=== PATIENT | female | born 1995 | race Two or more races ===

== ENCOUNTER 2025-02-18 15:06 | Emergency (ER) | payer OTHER ==
[~2025-02-18] VITALS: Ht 160 cm; Wt 83.6 kg
[2025-02-18 16:20] VITALS: TEMP 98.3
[2025-02-18] MEDS ORDERED: METF-1211 PO (16:22)
[2025-02-18] MEDS ORDERED: ALBU18HF12 IH (16:22)
[2025-02-18 16:27] VITALS: BP 133/87; PULSE 82; RESP 16; O2SAT 99
[2025-02-18] MEDS: DOXYCYCLINE HYCLATE 100 MG TABLET PO ONE (17:38)
[2025-02-18] MEDS: CEPHALEXIN MONOHYDRATE 500 MG CAPSULE PO ONE (17:38)
[2025-02-18] MEDS: CIPROFLOXACIN HCL 0.2%/HYDROCORT 1% 10 ML OTIC SUSPENSION AD SCH (17:40)
[2025-02-18 19:11] LABS: GLUCOMETER DEV NAME(LOC) ERT.7; GLUCOSE,POINT OF CARE 98 MG/DL (70-110)
== END 2025-02-18 19:28 ==
LOC: EMS 15:06
DX: H60.91 Unspecified otitis externa, right ear (principal); E11.9 Type 2 diabetes mellitus without complications; J45.909 Unspecified asthma, uncomplicated; Z88.0 Allergy status to penicillin; Z79.899 Other long term (current) drug therapy
CPT/HCPCS: 82962; 99284